=== PATIENT | female | born 1980 | race Caucasian/White ===

== ENCOUNTER → 2020-02-16 | Outpatient (CLI) | payer BC ==
--- NOTE | 2020-02-16 13:08 | KCIC ---
EXAM: CHEST 2 VIEWS. HISTORY: Chest pain,. COMPARISON: None. FINDINGS: Frontal and lateral views of the chest are obtained. Linear opacities in both bases most likely indicate atelectasis. There are no confluent infiltrates. There is no pneumothorax or pleural effusion. The heart is not enlarged. IMPRESSION: 1. Bibasilar atelectasis. No confluent infiltrates. Electronically signed by: Owen Ascencio MD (02/16/2020 1:05 PM) [facility]
== END ==
LOC: KCIC 12:48
PROVIDERS: ATTEND Family Medicine
DX: J98.11 Atelectasis (principal); Z87.891 Personal history of nicotine dependence
CPT/HCPCS: 71046